=== PATIENT | male | born 1990 | race Caucasian/White ===

== ENCOUNTER 2016-07-04 17:57 | Emergency (ER) | payer BC, OTHER ==
[~2016-07-04] VITALS: Ht 167.6 cm; Wt 82.6 kg
[2016-07-04 18:24] VITALS: Ht 167.6 cm; Wt 82.6 kg
--- NOTE | 2016-07-04 19:49 | ERD ---
ER Documentation Chief Complaint Date/Time DATE: 07/04/16 TIME: 19:47 Chief Complaint twisted right 5th finger this pm, c/o pain/swelling HPI This is a 25-year-old male who presents to the emergency department today complaining of some right fifth finger pain. Patient states he was lifting something heavy when he felt it crack. Patient states this happened one time when he was a child his mom pulled his finger on it straightened back out. States that it feels warm. Denies any fevers or chills. ROS All systems reviewed and are negative except as per history of present illness. Medications Home Meds Active Scripts Acetaminophen* (Tylophen*) 500 Mg Capsule, 1 CAP PO Q6H Y for PAIN AND OR ELEVATED TEMP, #30 CAP Prov:JIM FLAHERTY PA-C 07/04/16 Naproxen* (Naprosyn*) 500 Mg Tablet, 500 MG PO BID Y for PAIN AND/OR INFLAMMATION, #30 TAB Prov:JIM FLAHERTY PA-C 07/04/16 Allergies Allergies: Coded Allergies: No Known Drug Allergies (Verified Allergy, Unknown, 07/04/16) Physical Exam Vitals Vital Signs Date Time Temp Pulse Resp B/P Pulse Ox O2 Delivery O2 Flow Rate FiO2 07/04/16 18:24 98.1 69 20 136/65 99 Physical Exam Const: Pleasant, no acute distress Head: Atraumatic Eyes: Normal Conjunctiva ENT: Normal External Ears, Nose and Mouth. Neck: Full range of motion..~ No meningismus. Resp: Clear to auscultation bilaterally Cardio: Regular rate and rhythm, no murmurs Abd: Soft, non tender, non distended. Normal bowel sounds Skin: No petechiae or rashes MSK right hand with mild deformity right fifth finger. Limited range of motion secondary to swelling and pain. Good cap refill. Pulses 2+. Distal neurovascularly intact. Neur: Awake and alert Psych: Normal Mood and Affect Results 24 hrs DIAGNOSTIC IMAGING REPORT Patient: JAROD LAMA : 1990 Age: 25 Sex: M MR #: [id number] DOS: 07/04/16 0000 Ordering MD: JIM FLAHERTY PA-C Location: E Room/Bed: PROCEDURE: XR Finger. CLINICAL INDICATION: Trauma. Right fifth finger pain. TECHNIQUE: Three views. Frontal, lateral, and oblique. COMPARISON: None available FINDINGS: There is no fracture or dislocation. The soft tissues are normal. Articular surfaces are intact. There is no lytic or blastic lesion. There is no radiopaque foreign body. IMPRESSION: 1. Normal images of the right fifth finger. RPTAT: QQ .Jesus Lorenzana MD, Date Time Electronically viewed and signed by .Jesus Lorenzana MD, on 07/04/2016 19:53 .R/ CC: JIM FLAHERTY PA-C Procedures/MDM This 25-year-old male who presents to the emergency department today complaining of some right fifth finger pain after lifting something heavy and feeling a crack. Patient did have what appears to be some mild deformity as well as an effusion and therefore did obtain images. Per the radiology report images of the fifth finger are unremarkable. There is no acute fracture or dislocation. Patient symptoms at this time most consistent with sprain versus strain versus subluxation. Patient declined pain medication here in the emergency department. I will give him a prescription for Naprosyn and Tylenol for home. Patient was placed in a metal splint. At this time the patient is stable for discharge and outpatient management. Patient should follow up with their PCP in the next 1-2 days. They may return to the emergency department sooner for any persistent or worsening of symptoms. Patient understood and agreed with the plan. Departure Diagnosis: Primary Impression: Finger injury Encounter type: initial encounter Laterality: right Qualified Code: S69.91XA - Finger injury, right, initial encounter Condition: Fair JIM FLAHERTY PA-C Jul 04, 2016 19:49
--- NOTE | 2016-07-04 19:54 | RADRPT ---
PROCEDURE: XR Finger. CLINICAL INDICATION: Trauma. Right fifth finger pain. TECHNIQUE: Three views. Frontal, lateral, and oblique. COMPARISON: None available FINDINGS: There is no fracture or dislocation. The soft tissues are normal. Articular surfaces are intact. There is no lytic or blastic lesion. There is no radiopaque foreign body. IMPRESSION: 1. Normal images of the right fifth finger. RPTAT: QQ .Jesus Lorenzana MD, MD Date Time Electronically viewed and signed by .Jesus Lorenzana MD, MD on 07/04/2016 19:53 .R/
[2016-07-04] MEDS ORDERED: NAPR-260 PO (20:06)
[2016-07-04] MEDS ORDERED: ACET500C5 PO (20:07)
== END 2016-07-04 20:42 | disposition home or self-care (01) ==
LOC: FTE 17:57
DX: S69.91XA Unspecified injury of right wrist, hand and finger(s), initial encounter (principal); X50.0XXA Overexertion from strenuous movement or load, initial encounter; Y92.9 Unspecified place or not applicable
CPT/HCPCS: 29130; 73140; Z7502